=== PATIENT | female | born 1970 | race Caucasian/White ===

== ENCOUNTER 2023-04-02 08:25 | Outpatient (OUT) | payer OTHER, SELFPAY ==
--- NOTE | 2023-04-02 08:30 | MM_ITS ---
Patient Name: ANIKET CURIEL MR#: [id number] : 1970 Exam Date: 04/02/2023 Ordering Doctor: DR JEANE VEGA [facility] RADIOLOGY REPORT PROCEDURE: MM TOMOSYNTHESIS SCREENING BI COMPARISON: MG MAMM SCREEN DISHA W CAD, 02/13/2018. MG MAMM SCREEN 3D DIHSA CAD, 05/17/2020. INDICATIONS: Screening Calculator Name NCI Breast Cancer Risk Assessment Tool 5 Year Breast Cancer Risk 2.00% Lifetime Breast Cancer Risk 15.10% Personal Breast Cancer No Personal Ovarian Cancer No Treatments None Family Cancers Grandmother-maternal with breast cancer at age ~50; Mother with breast cancer at age 45; Grandmother-paternal with breast cancer at age ~70; Father with prostate cancer at age 70. LOCATION: [facility] BREAST COMPOSITION: Extremely dense, which lowers the sensitivity of mammography. FINDINGS: DIAGNOSTIC CATEGORY 1--NEGATIVE. NO CHANGE FROM COMPARISON ASSESSMENT. Scattered benign-appearing lymph nodes are present. RIGHT BREAST: No significant suspicious finding. LEFT BREAST: No significant suspicious finding. RECOMMENDATIONS: ROUTINE MAMMOGRAM AND CLINICAL EVALUATION IN 12 MONTHS. PLEASE NOTE: A NORMAL MAMMOGRAM DOES NOT EXCLUDE THE POSSIBILITY OF BREAST CANCER. A CLINICALLY SUSPICIOUS PALPABLE LUMP SHOULD BE BIOPSIED. Dictated by: Mo Javed MD on 04/02/2023 at 11:48 Approved by: Mo Javed MD on 04/02/2023 at 11:49
== END 2023-04-02 08:26 | disposition home or self-care (01) ==
LOC: MAMMO 08:25
PROVIDERS: PCP Family Medicine; Visit Provider Midwife
DX: Z12.31 Encounter for screening mammogram for malignant neoplasm of breast (principal); Z80.3 Family history of malignant neoplasm of breast; Z80.42 Family history of malignant neoplasm of prostate
CPT/HCPCS: 77063; 77067